=== PATIENT | female | born 1980 | race Caucasian/White ===

== ENCOUNTER 2016-06-02 19:54 | Observation (INO) | payer MEDICAID, OTHER | END 2016-06-02 20:48 | disposition home or self-care (01) | LOC: FLD 19:54 | PROVIDERS: ADMIT Obstetrics & Gynecology; ATTEND Obstetrics & Gynecology | DX: O62.9 Abnormality of forces of labor, unspecified (principal); Z3A.38 38 weeks gestation of pregnancy ==

== ENCOUNTER 2016-07-08 16:06 | Emergency (ER) | payer MEDICAID ==
[2016-07-08 16:12] VITALS: O2SAT 96
--- NOTE | 2016-07-08 16:57 | EDPHY ---
H & P Stated Complaint: on 06/03 now large hemotoma. Time Seen by Provider: 07/08/16 16:27 HPI/ROS: CHIEF COMPLAINT: Incisional pain HISTORY OF PRESENT ILLNESS: The patient is a 36-year-old female who comes to the emergency department complaining of pain around the incision of her C- section which was done 5 weeks ago. She states that she was recovering well and only had occasional lochia. Yesterday she went hiking with her baby in a backpack. She had a strap across her abdomen. After she returned she had some pain around her incision and mild firmness. She also states that it was slightly discolored blue. She was concerned that maybe she was bleeding. No dehiscence. No fever. No vomiting. No vaginal bleeding. No urinary symptoms. REVIEW OF SYSTEMS: Constitutional: denies: chills, fever, recent illness, recent injury EENTM: denies: blurred vision, double vision, nose congestion Respiratory: denies: cough, shortness of breath Cardiac: denies: chest pain, irregular heart rate, lightheadedness, palpitations Gastrointestinal/Abdominal: denies: abdominal pain, diarrhea, nausea, vomiting, blood streaked stools Genitourinary: See HPI denies: dysuria, frequency, hematuria, pain Musculoskeletal: denies: joint pain, muscle pain Skin: denies: lesions, rash, jaundice, bruising Neurological: denies: headache, numbness, paresthesia, tingling, dizziness, weakness Hematologic/Lymphatic: denies: blood clots, easy bleeding, easy bruising Immunologic/allergic: denies: HIV/AIDS, transplant EXAM: GENERAL: Well-appearing, well-nourished and in no acute distress. HEAD: Atraumatic, normocephalic. EYES: Pupils equal round and reactive to light, extraocular movements intact, sclera anicteric, conjunctiva are normal. ENT: TMs normal, nares patent, oropharynx clear without exudates. Moist mucous membranes. NECK: Normal range of motion, supple without lymphadenopathy or JVD. LUNGS: Breath sounds clear to auscultation bilaterally and equal. No wheezes rales or rhonchi. HEART: Regular rate and rhythm without murmurs, rubs or gallops. ABDOMEN: Incision clean dry and intact, no dehiscence, no significant discoloration or bruising or firmness. Mildly tender. BACK: No CVA tenderness, no spinal tenderness, step-offs or deformities EXTREMITIES: Normal range of motion, no pitting or edema. No clubbing or cyanosis. NEUROLOGICAL: Cranial nerves II through XII grossly intact. Normal speech, normal gait. 5/5 strength, normal movement in all extremities, normal sensation PSYCH: Normal mood, normal affect. SKIN: Warm, dry, normal turgor, no visible rashes or lesions. Source: Patient Exam Limitations: No limitations - Personal History LMP (Females 10-55): 1-7 Days Ago Current Tetanus/Diphtheria Vaccine: Yes Current Tetanus Diphtheria and Acellular Pertussis (TDAP): Yes - Medical/Surgical History Hx Asthma: No Hx Chronic Respiratory Disease: No Hx Diabetes: No Hx Cardiac Disease: No Hx Renal Disease: No Hx Cirrhosis: No Hx Alcoholism: No Hx HIV/AIDS: No Hx Splenectomy or Spleen Trauma: No Other PMH: migraines , parathroyid removal, 2012 colon surgery, - Family History Significant Family History: No pertinent family hx - Social History Smoking Status: Never smoked Alcohol Use: Sober Drug Use: None Constitutional: Initial Vital Signs Temperature (C) 36.4 C 07/08/16 16:07 Heart Rate 73 07/08/16 16:07 Respiratory Rate 17 07/08/16 16:07 Blood Pressure 144/94 H 07/08/16 16:07 O2 Sat (%) 96 07/08/16 16:07 O2 Delivery Mode Room Air Allergies/Adverse Reactions: all antibiotics Allergy (Uncoded 02/22/14 09:51) Home Medications: Medication Instructions Recorded Metformin 1000 mg 07/08/16 Medical Decision Making - Diagnostics Imaging Results: Imaging Impressions Pelvic/Renal Ultrasound 07/08/16 16:54 Impression: No source for pain identified. A message was left for Dr. Gerber. Imaging: Discussed imaging studies w/ call worker person Radiologist ED Course/Re-evaluation: We discussed the patient's ultrasound results. She is relieved. She is eager to go. We discussed taking it easy on exercising. She will follow up with her OBGYN. Differential Diagnosis: Partial list of the Differential diagnosis considered include but were not limited to; wound dehiscence, contusion, urine bleeding and although unlikely based on the history and physical exam, I also considered ovarian torsion, rupture, infection. I discussed these differential diagnoses and the plan with the patient as well as the usual and expected course. The patient understands that the diagnosis is provisional and that in medicine we are not always correct and that further workup is often warranted. Usual and customary warnings were given. All of the patient's questions were answered. The patient was instructed to return to the emergency department should the symptoms at all worsen or return, otherwise to followup with the physician as we discussed. Departure - Departure Disposition: Home, Routine, Self-Care Clinical Impression: Contusion Qualifiers: Encounter type: initial encounter Contusion area: abdominal wall Qualified Code (s): S30.1XXA - Contusion of abdominal wall, initial encounter Condition: Fair Instructions: Contusion in Adults (ED) Referrals: NONE *PRIMARY CARE P,. [Unknown] - As per Instructions
[2016-07-08 18:18] VITALS: BP 151/109; PULSE 70; RESP 18; TEMP 99.1
== END 2016-07-08 18:18 | disposition home or self-care (01) ==
DX: L76.22 Postprocedural hemorrhage of skin and subcutaneous tissue following other procedure (principal)